=== PATIENT | male | born 1995 | race Hispanic/Latino ===

== ENCOUNTER 2017-11-27 21:35 | Emergency (ER) | payer BC ==
[~2017-11-27] VITALS: Ht 165.1 cm; Wt 63.5 kg
[2017-11-27] MEDS ORDERED: ACETAMINOPHEN 325 MG TAB ONE (21:51)
[2017-11-27] MEDS ORDERED: ACETAMINOPHEN 325 MG TAB PO ONE (22:00)
--- NOTE | 2017-11-27 22:09 | Diagnostic Imaging Report ---
EXAMINATION: CHEST 2 VIEWS INDICATION: Cough, congestion COMPARISON: None FINDINGS: TUBES and LINES: None. LUNGS: Lungs are well inflated. Lungs are clear. There is no evidence of pneumonia or pulmonary edema. PLEURA: No pleural effusion or pneumothorax. HEART AND MEDIASTINUM: The cardiomediastinal silhouette is unremarkable. BONES AND SOFT TISSUES: No acute osseous lesion. Soft tissues are unremarkable. UPPER ABDOMEN: No free air under the diaphragm. IMPRESSION: No acute thoracic abnormality. Signed by: Dr. Ray Pierre M.D. on 11/27/2017 10:06 PM
[2017-11-28 01:22] VITALS: BP 145/65
== END 2017-11-28 01:24 | disposition home or self-care (01) ==
LOC: ER 21:35
DX: R50.9 Fever, unspecified (principal); R05 Cough; J11.1 Influenza due to unidentified influenza virus with other respiratory manifestations
CPT/HCPCS: 71020; 87400; 99283

== ENCOUNTER 2019-02-25 17:06 | Emergency (ER) | payer BC ==
[~2019-02-25] VITALS: Ht 165.1 cm; Wt 63.5 kg
--- OUTSIDE RECORDS SUMMARY | 2019-02-25 17:09 | XMS REPORT ---
[facility] Address Unknown Phone Unavailable Care Team Providers Care Housing And Residence Life Director Name Role Phone Tish COOPER Unavailable Unavailable Problems This patient has no known problems. Allergies, Adverse Reactions, Alerts This patient has no known allergies or adverse reactions. Medications This patient has no known medications. Results Test Description Test Time Test Comments Text Results Atomic Results Result Comments CHEST 2 VIEWS [place] [address] Patient Name: AV BALLARD MR #: [id number] : 1995 Age/Sex: 22/M Req #: [id number] Adm Physician: Ordered by: HARPER COOPER MD Report #: [id number] Location: ER Room/Bed: Procedure: [id number] DX/CHEST 2 VIEWS Exam Date: Exam Time: REPORT STATUS: Signed EXAMINATION: CHEST 2 VIEWS INDICATION: Cough, congestion COMPARISON: None FINDINGS: TUBES and LINES: None. LUNGS: Lungs are well inflated. Lungs are clear. There is no evidence of pneumonia or pulmonary edema. PLEURA: No pleural effusion or pneumothorax. HEART AND MEDIASTINUM: The cardiomediastinal silhouette is unremarkable. BONES AND SOFT TISSUES: No acute osseous lesion. Soft tissues are unremarkable. UPPER ABDOMEN: No free air under the diaphragm. IMPRESSION: No acute thoracic abnormality. Signed by: Dr. Ray Pierre M.D. on 11/27/2017 10:06 PM Dictated By: RAY MAY MD 05 Transcribed By: JAILYN on 11/27/172205 COPY TO: HARPER COOPER MD
[2019-02-25 18:07] LABS: STREPTOCOCCUS GRP A ANTIGEN NEGATIVE (NEGATIVE)
[2019-02-25 18:18] LABS: INFLUENZAE A&B ANTIGEN (RAPID) NEGATIVE (NEGATIVE)
[2019-02-25] MEDS ORDERED: AZITHROMYCIN250 MG PO (18:24)
[2019-02-25 18:36] VITALS: BP 119/74
== END 2019-02-25 18:35 | disposition home or self-care (01) ==
LOC: ER 17:06
DX: J02.9 Acute pharyngitis, unspecified (principal); J30.2 Other seasonal allergic rhinitis; J30.1 Allergic rhinitis due to pollen
CPT/HCPCS: 83518; 87070; 87400; 99283

== ENCOUNTER 2019-04-14 17:18 | Emergency (ER) | payer BC ==
[~2019-04-14] VITALS: Ht 165.1 cm; Wt 63.5 kg
[~2019-04-14 17:18] MED LIST: AZITHROMYCIN250 MG PO
== END 2019-04-14 17:40 | disposition left against medical advice (07) ==
LOC: ER 17:18
DX: Z53.21 Procedure and treatment not carried out due to patient leaving prior to being seen by health care provider (principal)

== ENCOUNTER 2021-08-09 16:39 | Emergency (ER) | payer SELFPAY ==
[~2021-08-09] VITALS: Ht 165.1 cm; Wt 63.5 kg
[2021-08-09] MEDS ORDERED: DEXAMETHASONE SOD PHOS INJ 4 MG/ML SDV IM ONE (17:15)
[2021-08-09] MEDS ORDERED: DEXAMETHASONE SOD PHOS INJ 4 MG/ML SDV ONE (17:19)
[2021-08-09] MEDS ORDERED: PREDNISONE20 MG PO (17:37)
[2021-08-09] MEDS ORDERED: VENTOLIN HFA18 GM INH (17:37)
[2021-08-09] MEDS ORDERED: AZITHROMYCIN250 MG PO (17:37)
== END 2021-08-09 18:00 | disposition home or self-care (01) ==
LOC: FSED 17:01
DX: R53.81 Other malaise (principal); R11.0 Nausea; R43.8 Other disturbances of smell and taste; R50.9 Fever, unspecified; R63.0 Anorexia
CPT/HCPCS: 83518; 87400; 99283; J1100